=== PATIENT | male | born 1985 | race Caucasian/White ===

== ENCOUNTER 2016-06-18 13:02 | Emergency (ER) | payer BC, OTHER ==
[~2016-06-18] VITALS: Ht 177.8 cm; Wt 94.5 kg
[~2016-06-18 13:02] MED LIST: MULT-506 PO
[2016-06-18 13:05] VITALS: TEMP 36.7; Ht 177.8 cm; Wt 94.5 kg
[2016-06-18] MEDS ORDERED: CLR10 PO (13:39)
[2016-06-18] MEDS ORDERED: PSEU120T21 PO (13:39)
--- NOTE | 2016-06-18 13:44 | EMERGENCY ROOM VISIT NOTE ---
ED Visit Note First contact with patient: 13:10 CHIEF COMPLAINT / HISTORY OF PRESENT ILLNESS: The patient reports nasal congestion, throat irritation, and drainage off and on for the past several weeks. Patient states 3 weeks ago that he started coughing up yellow sputum, so he took some "left over antibiotics" which seemed to clear this up. Patient states that he has had increased sneezing, watery eyes, nasal drainage, and scratchy throat over the past week. He has not tried any medications for this. No fever or chills. No rash. Denies any posterior neck pain or stiffness. No difficulty breathing. Symptoms came on gradually. There has been no chest pain, no abdominal pain, no nausea or vomiting. REVIEW OF SYSTEMS: No headache, no rash, no cough, no neck pain, no voice changes or hoarseness. PMH: The patient is healthy; there is no significant medical or surgical history. The patient does not take any medications on a daily basis. SOCIAL HISTORY: Patient lives at home. PHYSICAL EXAM: Vital Signs: Reviewed Nurse's notes. MENTAL STATUS: Alert and oriented. EARS: Bilateral TMs normal, canals normal, no drainage or tenderness. NOSE: Bilateral naris patent, congestion and bsjq-ed-ejazlsyn injection of the turbinates noted. THROAT: The pharynx not inflamed, erythematous, or swollen. No exudates are seen on the tonsils. The oropharyngeal airway is patent. Uvula is midline and no abscess is seen. Postnasal drainage noted in the posterior pharynx. SKIN: Clear and dry, no eruptions. No cyanosis, no petechiae. NECK: The neck is supple, no pain with full range of motion, no cervical adenopathy palpated. DIFFERENTIAL DIAGNOSES: Includes, but not limited to allergic rhinitis, sinusitis, pharyngitis viral versus bacterial, viral upper respiratory infection. SUMMARY: Patient is well-appearing and in no distress. Throat is unremarkable, no erythema, swelling, exudate. Patent airway. Patient describes a lot of postnasal drainage which is most likely contributing to his other symptoms. Patient also exhibits other allergic type symptoms of sneezing and watery eyes, itchy throat. Patient was encouraged to take zjff-qjv-wylkolv Claritin, and also provided with prescription for Nasacort which was encouraged to use for his symptoms. He was encouraged to follow up with his PCP. Problem List Medical Problems: (1) Benign hypertension Status: Chronic Current/Historical Medications Scheduled Loratadine (Claritin), 10 MG PO DAILY Pseudoephedrine-Guaifenesin (Mucinex D), 1 TAB PO DAILY Triamcinolone Acetonide (Nasal (Nasacort Allergy 24Hr), 2 SPRAYS SAVANA DAILY Allergies Coded Allergies: No Known Allergies (Unverified , 02/17/14) Vital Signs Date Time Temp Pulse Resp B/P Pulse Ox O2 Delivery O2 Flow Rate FiO2 06/18/16 13:45 71 16 147/76 97 Room Air 06/18/16 13:08 96 Room Air 06/18/16 13:05 36.7 81 18 142/94 96 Room Air Departure Information Impression Primary Impression: Allergic rhinitis Dispostion Home / Self-Care Condition GOOD Prescriptions Triamcinolone Acetonide (Nasal (Nasacort Allergy 24Hr) 55 Mcg/Act Spr 2 SPRAYS SAVANA DAILY for 21 Days, #1 BTL 1 Refill Prov: Angeles Mcdaniels, TIGHTENING MACHINE OPERATOR 06/18/16 Referrals No Doctor, Assigned (PCP) Patient Instructions ED Allergy Nasal, [facility] Additional Instructions You were seen in the emergency department for your nasal drainage and sore throat. Take medications all medications as prescribed. You were prescribed Nasacort to be taken 2 sprays to each nostril once a day. This is not an antibiotic. Stop using this medication and contact a medical provider if you were to develop any significant adverse side effects including: Nosebleeds, wheezing, shortness of breath, passing out, vomiting, or a diffuse rash. Continue taking the Claritin (Tmcn-yor-qhobcwp antihistamine) one tablet daily to help manage your allergy symptoms. For pain control, you can use the following qxxb-dpw-pifkxdx medicines (if >12 yo): - Regular strength (325mg/tab) Tylenol (acetaminophen) 2 tabs every 4-6 hours as needed. Do not exceed 12 tablets in a 24 hour period. Avoid taking more than 4 grams (4000 mg) of Tylenol per day. This includes any other sources of acetaminophen you may take on a regular basis. - Regular strength (200 mg/tab) Advil (ibuprofen) 1-2 tabs every 4-6 hours as needed. Do not exceed a dose of 3200 mg per day. - For best results, alternate dosing of Tylenol and Advil. In addition to your prescribed medications, you can also use the following home remedies: - Warm salt-water gargles 3 times per day can soothe your throat and help to fight infection. - Warm tea with honey can soothe your throat. Return to the emergency department if your symptoms worsen over the next 2-3 days despite treatment course outlined above. Return to the emergency department if you develop the following symptoms of: inability to swallow solids , liquids, or drooling; muffled voice; excessive wheezing or inability to catch your breath; or intractable fever or pain. Follow up with your primary care provider in 2-3 days from today's emergency department visit. Problem Qualifiers Primary Impression: Allergic rhinitis Allergic rhinitis trigger: unspecified Allergic rhinitis seasonality: seasonal Qualified Codes: J30.2 - Other seasonal allergic rhinitis
[2016-06-18 13:45] VITALS: BP 147/76; PULSE 71; O2SAT 97
[2016-06-18] MEDS ORDERED: TRIA1SPR4 NAE (13:51)
== END 2016-06-18 14:03 | disposition home or self-care (01) ==
LOC: C.EDB 13:04 → C.EDD 14:03
DX: J30.2 Other seasonal allergic rhinitis (principal); I10 Essential (primary) hypertension; Z79.899 Other long term (current) drug therapy

== ENCOUNTER 2016-10-03 14:25 | Emergency (ER) | payer SELFPAY ==
[~2016-10-03] VITALS: Ht 177.8 cm; Wt 100.5 kg
[~2016-10-03 14:25] MED LIST changes: +CLR10 PO; -MULT-506 PO; +PSEU120T21 PO; +TRIA1SPR4 NAE
[2016-10-03 14:41] VITALS: TEMP 36.8; Ht 177.8 cm; Wt 100.5 kg
[2016-10-03] MEDS ORDERED: TRIA1SPR4 (17:05)
[2016-10-03] MEDS ORDERED: IBUP-1050 PO (17:05)
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
[2016-10-03 18:08] LABS: URINE APPEARANCE CLEAR (CLEAR); URINE BILIRUBIN NEG (NEG); URINE COLOR YELLOW; URINE NITRITE NEG (NEG); URINE PH 6.5 (4.5-7.5); URINE SPECIFIC GRAVITY 1.012 (1.000-1.030); UROBILINOGEN NEG (NEG); ZZUR CULT IF INDIC CLEAN CATCH NO
[2016-10-03 18:11] LABS: MANUAL MICROSCOPIC REQUIRED? NO; REVIEW REQ? NO
[2016-10-03 18:12] LABS: MEAN CELL VOLUME 86.1 fL (80-100); MEAN CORPUSCULAR HEMOGLOBIN 31.3 pg (25-34); MEAN CORPUSCULAR HGB CONC 36.4 g/dl (32-36); MEAN PLATELET VOLUME 10.7 fL (7.4-10.4); PLATELET COUNT 238 K/uL (130-400); RED BLOOD COUNT 5.11 M/uL (4.7-6.1); WHITE BLOOD COUNT 8.09 K/uL (4.8-10.8)
[2016-10-03 18:29] LABS: BUN/CREATININE RATIO 13.1 (10-20); CALCIUM 9.1 mg/dl (8.5-10.1); POTASSIUM 3.9 mmol/L (3.5-5.1)
--- NOTE | 2016-10-03 18:38 | DIAGNOSTIC IMAGING REPORT ---
CT SCAN OF THE ABDOMEN AND PELVIS WITHOUT IV CONTRAST CLINICAL HISTORY: Right-sided back pain. COMPARISON STUDY: Abdominal CT dated 07/18/2012. TECHNIQUE: CT scan of the abdomen and pelvis is performed from the lung bases to the proximal femora. Images are reviewed in the axial, sagittal, and coronal planes. IV contrast was not administered for this examination as per the referring clinician. Automated dose control exposure was utilized. A dose lowering technique was utilized adhering to the principles of ALARA. CT DOSE: 1102.46 mGycm FINDINGS: Lung bases: The heart is normal in size and without pericardial effusion. A punctate calcified granuloma is seen in the right lung base. The lung bases are otherwise clear noting dependent atelectasis. Liver: The unenhanced liver is normal in size, contour, and attenuation. There is no intrahepatic biliary ductal dilatation. Gallbladder: Unremarkable. Spleen: Normal in size and attenuation. Pancreas: Unremarkable. Adrenal glands: Unremarkable. Kidneys: The unenhanced kidneys are normal in size and without hydronephrosis. There are no renal calculi identified. There is no evidence of contour deforming renal mass lesion. Abdominal vasculature: The abdominal aorta is normal in course and caliber. Bowel: The small bowel and colon are normal in course and caliber. The appendix is well visualized and normal. Peritoneum: There is no intraperitoneal free air or abdominal ascites. There is a small fat containing umbilical hernia. Lymphadenopathy: None. Pelvic viscera: The bladder, prostate, and seminal vesicles are normal as visualized. Skeletal structures: No lytic or blastic lesions are seen. IMPRESSION: There are no acute infectious or inflammatory findings in the abdomen or pelvis. Electronically signed by: Paresh Mitchell M.D. 10/03/2016 6:36 PM Dictated Date/Time: 10/03/2016 6:28 PM
[2016-10-03 19:31] VITALS: BP 139/81; PULSE 90; O2SAT 97
== END 2016-10-03 19:32 | disposition home or self-care (01) ==
LOC: C.EDB 14:27
DX: R10.30 Lower abdominal pain, unspecified (principal); I10 Essential (primary) hypertension; K46.9 Unspecified abdominal hernia without obstruction or gangrene; Z80.9 Family history of malignant neoplasm, unspecified

== ENCOUNTER 2016-11-11 17:43 | Observation (INO) | payer BC ==
[~2016-11-11] VITALS: Ht 177.8 cm; Wt 93.2 kg
[~2016-11-11 17:43] MED LIST changes: +IBUP-1050 PO; -PSEU120T21 PO; +TRIA1SPR4; -TRIA1SPR4 NAE
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
[2016-11-11 19:54] LABS: BASO % 0.4 %; BASO ABS # 0.03 K/uL (0-0.2); COMPLETE YES; EOS % 1.3 %; HEMATOCRIT 45.1 % (42-52); IG% 0.3 %; LYMPH % 28.4 %; LYMPH ABS # 2.23 K/uL (1.2-3.4); MEAN CELL VOLUME 88.6 fL (80-100); MEAN CORPUSCULAR HEMOGLOBIN 30.8 pg (25-34); MEAN CORPUSCULAR HGB CONC 34.8 g/dl (32-36); MEAN PLATELET VOLUME 11.9 fL (7.4-10.4); NEUT % 61.6 %; PLATELET COUNT 114 K/uL (130-400); RED BLOOD COUNT 5.09 M/uL (4.7-6.1); WHITE BLOOD COUNT 7.86 K/uL (4.8-10.8)
[2016-11-11 20:01] LABS: POINT OF CARE TROPONIN I < 0.030 ng/ml (0-0.045)
[2016-11-11 20:04] LABS: PROTHROMBIN TIME (PATIENT) 11.2 SECONDS (9.0-12.0)
--- NOTE | 2016-11-11 20:11 | DIAGNOSTIC IMAGING REPORT ---
CHEST 2 VIEWS ROUTINE CLINICAL HISTORY: Atypical chest pain. Cough. COMPARISON STUDY: No previous studies for comparison. FINDINGS: The cardiac and mediastinal contours are normal. There is no evidence of focal pulmonary consolidation. There is no evidence of failure. No pleural effusions are visualized.[ There is a suboptimal inspiration with mild bronchovascular crowding at the lung bases. IMPRESSION: Suboptimal inspiration on the PA projection with mild bronchovascular crowding at the lung bases. No evidence of focal pulmonary consolidation Electronically signed by: Joao Coleman M.D. 11/11/2016 8:10 PM Dictated Date/Time: 11/11/2016 8:09 PM
[2016-11-11 20:18] LABS: BUN/CREATININE RATIO 9.2 (10-20); CALCIUM 9.2 mg/dl (8.5-10.1); CREATININE 1.1 mg/dl (0.60-1.40); POTASSIUM 3.9 mmol/L (3.5-5.1)
[2016-11-11] MEDS ORDERED: NITROGLYCERIN OINT 2% 1GM PACKET EXT STA (20:44)
[2016-11-11] MEDS ORDERED: NITROGLYCERIN OINT 2% 1GM PACKET ONE (20:47)
[2016-11-11] MEDS ORDERED: ACETAMINOPHEN 325 MG TAB PO PRN (21:30)
[2016-11-11] MEDS ORDERED: NITROGLYCERIN 0.4 MG SL PER TAB CHARGE SL PRN (21:30)
[2016-11-11] MEDS ORDERED: ONDANSETRON INJ 2 MG/ML 2 ML VIAL IV PRN (21:30)
[2016-11-11] MEDS ORDERED: CLONIDINE HCL 0.1 MG TAB PO PRN (21:45)
[2016-11-11] MEDS ORDERED: LORAZEPAM 0.5 MG TAB PO PRN (21:45)
--- NOTE | 2016-11-11 21:50 | History and Physical ---
History & Physical Date & Time of Service: Nov 11, 2016 ~ 21:15 Chief Complaint: Chest Pain Primary Care Physician: No Doctor, Assigned History of Present Illness 31 year old male who presents to the ED with chest pain. Patient reports his symptoms began around 0430pm today. He reports a midsternal chest pain that radiated mildly over to the right side of chest. He describes the pain as a pressure. He reports associated palpitations, nausea, lightheadedness, and shortness of breath. Symptoms lasted for around 10 minutes and started to subside. Of note, patient is currently going through a separation with his long time girlfriend. They also have a child together. Just before his episode of chest pain today, patient reports having an argument with his girlfriend. 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 He does not follow with a physician regularly. He reports having a poor appetite while going through the separation. He denies abdominal pain, nausea, vomiting, or diarrhea. No fever or chills. He denies urinary symptoms. In the ED, patient is found to have an elevated BP at 156/101. EKG shows T-wave inversions inferiorly and laterally. Initial POC troponin is negative. D. Dimer is negative. Topical nitro paste was applied. Past Medical/Surgical History Surgical Problems: (1) H/O inguinal hernia repair Status: Chronic Family History Adrenal cancer MOTHER negative for premature CAD, DM, or CVA Social History Smoking Status: Never Smoker Alcohol Use: occasionally Drug Use: none Multi-Drug Resistant Organisms History of MDRO: No Allergies Coded Allergies: No Known Allergies (Unverified , 02/17/14) Home Medications No Active Prescriptions or Reported Meds Review of Systems ROS per HPI, all other systems reviewed and negative Physical Exam Vital Signs Date Time Temp Pulse Resp B/P (MAP) Pulse Ox O2 Delivery O2 Flow Rate FiO2 11/11/16 20:53 159/110 11/11/16 20:43 91 17 97 11/11/16 20:31 147/93 11/11/16 20:13 91 22 98 11/11/16 19:43 76 22 97 11/11/16 19:31 124/109 11/11/16 19:13 79 11/11/16 19:13 85 17 99 11/11/16 19:06 158/108 11/11/16 18:02 97 Room Air 11/11/16 17:58 36.9 92 20 156/101 97 Room Air General Appearance: no apparent distress Head: normocephalic, atraumatic Eyes: normal inspection, sclerae normal ENT: hearing grossly normal Neck: supple, no JVD Respiratory/Chest: chest non-tender, lungs clear, normal breath sounds, no respiratory distress Cardiovascular: regular rate, rhythm, no edema, normal peripheral pulses Abdomen/GI: normal bowel sounds, non tender, soft Extremities/Musculoskelatal: normal inspection, no calf tenderness Neurologic/Psych: no motor/sensory deficits, alert, normal mood/affect, oriented x 3 Skin: normal color, warm/dry Diagnostics Laboratory Results Results Past 24 Hours Test 11/11/16 17:03 11/11/16 19:42 11/11/16 21:27 Range/Units White Blood Count 7.86 4.8-10.8 K/uL Red Blood Count 5.09 4.7-6.1 M/uL Hemoglobin 15.7 14.0-18.0 g/dL Hematocrit 45.1 42-52 % Mean Corpuscular Volume 88.6 80-100 fL Mean Corpuscular Hemoglobin 30.8 25-34 pg Mean Corpuscular Hemoglobin Concent 34.8 32-36 g/dl Platelet Count 114 130-400 K/uL Mean Platelet Volume 11.9 7.4-10.4 fL Neutrophils (%) (Auto) 61.6 % Lymphocytes (%) (Auto) 28.4 % Monocytes (%) (Auto) 8.0 % Eosinophils (%) (Auto) 1.3 % Basophils (%) (Auto) 0.4 % Neutrophils # (Auto) 4.85 1.4-6.5 K/uL Lymphocytes # (Auto) 2.23 1.2-3.4 K/uL Monocytes # (Auto) 0.63 0.11-0.59 K/uL Eosinophils # (Auto) 0.10 0-0.5 K/uL Basophils # (Auto) 0.03 0-0.2 K/uL RDW Standard Deviation 39.7 36.4-46.3 fL RDW Coefficient of Variation 12.4 11.5-14.5 % Immature Granulocyte % (Auto) 0.3 % Immature Granulocyte # (Auto) 0.02 0.00-0.02 K/uL Prothrombin Time 11.2 9.0-12.0 SECONDS Prothromb Time International Ratio 1.0 0.9-1.1 Activated Partial Thromboplast Time 26.5 21.0-31.0 SECONDS Partial Thromboplastin Ratio 1.0 Sodium Level 139 136-145 mmol/L Potassium Level 3.9 3.5-5.1 mmol/L Chloride Level 105 98-107 mmol/L Carbon Dioxide Level 28 21-32 mmol/L Anion Gap 6.0 3-11 mmol/L Blood Urea Nitrogen 10 7-18 mg/dl Creatinine 1.10 0.60-1.40 mg/dl Est Creatinine Clear Calc Drug Dose 111.5 ml/min Estimated GFR () 101.7 Estimated GFR (Non- 87.7 BUN/Creatinine Ratio 9.2 10-20 Random Glucose 107 70-99 mg/dl Calcium Level 9.2 8.5-10.1 mg/dl Chemistry Specimen Hemolysis Bedside D-Dimer 147 0-450 ng/mlFEU Bedside Troponin I < 0.030 0-0.045 ng/ml Creatine Kinase MB Ratio 0-3.0 Diagnostic Radiology CXR IMPRESSION: Suboptimal inspiration on the PA projection with mild bronchovascular crowding at the lung bases. No evidence of focal pulmonary consolidation Impression Assessment and Plan CHEST PAIN, EKG CHANGES - admit to tele - patient presenting with chest pain, palpitations, nausea, and shortness of breath - noted symptoms started after having an argument with his girlfriend - in the ED, EKG show T-wave inversions laterally and inferiorly; no prior EKGs available - no risk factors for CAD identified (currently with high BP but suspect anxiety is contributing); will check hgb a1c and lipids - suspect symptoms are due to anxiety / panic attack; however due to EKG changes and elevated BP will observe overnight - will give full dose ASA tonight, and then 81mng starting tomorrow - initial troponin negative, will continue to cycle - noted negative D. Dimer - resting echo; will defer stress test to cardio - cardio consult, input appreciated - mental health consult for anxiety management HYPERTENSION - suspect that anxiety is contributing so will treat anxiety first with PRN lorazepam and await mental health consult for further recs - PRN clonidine DVT PROPHYLAXIS - SCDs DISPO - The patient will be placed as observation status for now until further work up is complete. - Currently does not have PCP - is interested in getting set up at [facility] VTE Prophylaxis VTE Risk Assessment Done? Y/N: Yes Risk Level: Low Given or contraindicated: SCD's Note ATTENDING ADDENDUM Record reviewed. Patient interviewed and examined in ED. Care coordinated with KANIKA Wall. Please refer to her documentation for patient's history. Briefly, 31 YO male who presented to ED with nonexertional chest pain. Experiencing emotional stress related to family matters. EXAM: General- no distress VS- as noted HEENT- anicteric Neck- no JVD Lungs- clear Heart- RRR, no murmur or rub Abdomen- + BS, soft, nontender Extremities- no pretibial edema or calf tenderness Neuro- alert DATA: Troponin < 0.015. D-dimer normal. Other lab studies as noted. CXR- negative. EKG performed at 18:03 reviewed and demonstrated NSR at 75 / minute, 0.[address] elevation I, aVL, 0.5 - [address] elevation V2-5, biphasic T-waves II, III, aVF, V4-6. No prior tracings available for comparison. . ASSESSMENT AND PLAN: Nonexertional chest pain. Nonspecific findings on EKG. Serum troponin normal in ED. Check serial cardiac markers. Check echo. D-dimer normal, so pulmonary embolism unlikely. BP elevated, probably situational. Clonidine PRN. May need antihypertensive therapy if BP's remain elevated. Consult Psychiatry re: stress / anxiety. Please refer to ROBIN James's documentation for discussion of other issues. Dave Parham MD .
[2016-11-11] MEDS ORDERED: ASPIRIN 325 MG ECTAB PO STA (21:54)
--- NOTE | 2016-11-11 22:29 | EMERGENCY ROOM VISIT NOTE ---
History Report prepared by Cyn: Kristian Rodriguez Under the Supervision of: Dr. Jose Daniel Pham M.D. First contact with patient: 18:22 Chief Complaint: CHEST PAIN Stated Complaint: PAIN IN CHEST, SOB Nursing Triage Summary: patient is under much stress at home with break up and child involoved states he had chest pain that radiated to the neck and "butterflies" in the stomach with some shortness of breath. happened about an hour an half ago and lasted about 20 minutes. states some chest pain conitnues but it is better. History of Present Illness The patient is a 31 year old male who presents to the Emergency Room with complaints of resolved chest pain that started at 1630. He rates his symptoms as a 6/10 in severity. The patient describes his pain as a pounding sensation. He reports that the pain is in the middle of the chest and "feels as if it is going into my lungs". The patient states that the most severe chest pain lasted for 8 minutes. He states that he has been experiencing shortness of breath, dizziness, lightheadedness, and palpitations. The patient also reports that he has been experiencing nausea. He reports that he is no longer experiencing these symptoms, but admits he is still experiencing nausea. The patient admits that he has been going through a separation with his that he is stressed about. He admits that he has been monitoring his high blood pressure. The patient states that he currently does not have a PCP and is in the process of getting one. He denies a history of heart disease and hyperlipidemia. Source of History: patient Onset: 1630 Position: chest Symptom Intensity: 6/10 Quality: other (pounding) Timing: resolved Associated Symptoms: + SOB, + nausea Review of Systems See HPI for pertinent positives & negatives. A total of 10 systems reviewed and were otherwise negative. Past Medical & Surgical Surgical Problems: (1) H/O inguinal hernia repair Family History Cancer Social History Smoking Status: Never Smoker Marital Status: single Occupation Status: employed Current/Historical Medications No Active Prescriptions or Reported Meds Allergies Coded Allergies: No Known Allergies (Unverified , 02/17/14) Physical Exam Vital Signs Date Time Temp Pulse Resp B/P (MAP) Pulse Ox O2 Delivery O2 Flow Rate FiO2 11/11/16 21:58 90 21 96 11/11/16 21:51 157/120 11/11/16 21:41 172/105 11/11/16 21:31 179/107 11/11/16 21:28 84 24 95 11/11/16 21:11 153/107 11/11/16 21:01 134/109 11/11/16 20:58 86 18 163/111 96 11/11/16 20:53 159/110 11/11/16 20:43 91 17 97 11/11/16 20:31 147/93 11/11/16 20:13 91 22 98 11/11/16 19:43 76 22 97 11/11/16 19:31 124/109 11/11/16 19:13 79 11/11/16 19:13 85 17 99 11/11/16 19:06 158/108 11/11/16 18:02 97 Room Air 11/11/16 17:58 36.9 92 20 156/101 97 Room Air Physical Exam Constitutional: Vital signs reviewed. Eyes: Pupils are equal round reactive to light. Conjunctiva are noninjected. ENT: Pharynx is clear without erythema or exudate. Mucous membranes are moist. Neck supple without meningeal signs. Respiratory: Clear to auscultation bilaterally. Breath sounds are equal bilaterally. Cardiovascular: Regular rate and rhythm. No rubs or gallops. GI: Soft, nondistended and nontender. Bowel sounds are present. Musculoskeletal: No peripheral edema. No lower extremity tenderness. Integumentary: No cyanosis. Neurological: The patient is awake and alert. No focal deficits. Psychiatric: Normal affect. Medical Decision & Procedures ER Provider Diagnostic Interpretation: X-ray results as stated below per interpretation by me and the radiologist: CHEST 2 VIEWS ROUTINE CLINICAL HISTORY: Atypical chest pain. Cough. COMPARISON STUDY: No previous studies for comparison. FINDINGS: The cardiac and mediastinal contours are normal. There is no evidence of focal pulmonary consolidation. There is no evidence of failure. No pleural effusions are visualized.[ There is a suboptimal inspiration with mild bronchovascular crowding at the lung bases. IMPRESSION: Suboptimal inspiration on the PA projection with mild bronchovascular crowding at the lung bases. No evidence of focal pulmonary consolidation Electronically signed by: Joao Coleman M.D. 11/11/2016 8:10 PM Dictated Date/Time: 11/11/2016 8:09 PM Laboratory Results 11/11/16 17:03 Red Blood Count 5.09, Mean Corpuscular Volume 88.6, Mean Corpuscular Hemoglobin 30.8, Mean Corpuscular Hemoglobin Concent 34.8, Mean Platelet Volume 11.9, Neutrophils (%) (Auto) 61.6, Lymphocytes (%) (Auto) 28.4, Monocytes (%) (Auto) 8.0, Eosinophils (%) (Auto) 1.3, Basophils (%) (Auto) 0.4, Neutrophils # (Auto) 4.85, Lymphocytes # (Auto) 2.23, Monocytes # (Auto) 0.63, Eosinophils # (Auto) 0.10, Basophils # (Auto) 0.03 11/11/16 17:03 Test 11/11/16 17:03 11/11/16 19:42 11/11/16 21:27 White Blood Count 7.86 K/uL (4.8-10.8) Red Blood Count 5.09 M/uL (4.7-6.1) Hemoglobin 15.7 g/dL (14.0-18.0) Hematocrit 45.1 % (42-52) Mean Corpuscular Volume 88.6 fL (80-100) Mean Corpuscular Hemoglobin 30.8 pg (25-34) Mean Corpuscular Hemoglobin Concent 34.8 g/dl (32-36) Platelet Count 114 K/uL (130-400) Mean Platelet Volume 11.9 fL (7.4-10.4) Neutrophils (%) (Auto) 61.6 % Lymphocytes (%) (Auto) 28.4 % Monocytes (%) (Auto) 8.0 % Eosinophils (%) (Auto) 1.3 % Basophils (%) (Auto) 0.4 % Neutrophils # (Auto) 4.85 K/uL (1.4-6.5) Lymphocytes # (Auto) 2.23 K/uL (1.2-3.4) Monocytes # (Auto) 0.63 K/uL (0.11-0.59) Eosinophils # (Auto) 0.10 K/uL (0-0.5) Basophils # (Auto) 0.03 K/uL (0-0.2) RDW Standard Deviation 39.7 fL (36.4-46.3) RDW Coefficient of Variation 12.4 % (11.5-14.5) Immature Granulocyte % (Auto) 0.3 % Immature Granulocyte # (Auto) 0.02 K/uL (0.00-0.02) Prothrombin Time 11.2 SECONDS (9.0-12.0) Prothromb Time International Ratio 1.0 (0.9-1.1) Activated Partial Thromboplast Time 26.5 SECONDS (21.0-31.0) Partial Thromboplastin Ratio 1.0 Anion Gap 6.0 mmol/L (3-11) Est Creatinine Clear Calc Drug Dose 111.5 ml/min Estimated GFR () 101.7 Estimated GFR (Non- 87.7 BUN/Creatinine Ratio 9.2 (10-20) Calcium Level 9.2 mg/dl (8.5-10.1) Creatine Kinase MB 3.2 ng/ml (0.5-3.6) Troponin I < 0.015 ng/ml (0-0.045) Chemistry Specimen Hemolysis Bedside D-Dimer 147 ng/mlFEU (0-450) Bedside Troponin I < 0.030 ng/ml (0-0.045) Creatine Kinase MB Ratio (0-3.0) Laboratory results as reviewed by me. Medications Administered Medications (Trade) Dose Ordered Sig/Kassy Route Start Time Stop Time Status Last Admin Dose Admin Nitroglycerin (Nitroglycerin 2% Oint) 1 inch STK-MED ONCE .ROUTE 11/11/16 20:47 11/11/16 20:48 DC 11/11/16 20:47 1 INCH ECG Indication: chest pain Rate (beats per minute): 75 Rhythm: normal sinus Findings: T-wave inversion (Inferior, V4-V6), no ectopy Comparison ECG Date: no prior available Change: REPEAT EKG: Normal sinus rhythm rate of 86. Inferior and lateral T wave inversion. No ST elevation. ED Course 1903: The patient was evaluated in room B02. A complete history and physical exam was performed. 2029: I reevaluated the patient and he reports that he developed chest pain on the right side, which he describes as muscular pain. 2046: Ordered Nitroglycerin 1 inch EXT. 2100: I discussed the patient's case with Araseli Wall. She understands the patient's condition and agrees to accept the patient. The patient will be further evaluated. Medical Decision This is a 31-year-old male who presents with chest pain. Differential diagnosis includes unstable angina, [place], anxiety, panic attack, pleurisy. I did perform a limited focused review of portions of the patient's old chart on the electronic medical record. The patient has had no recent pertinent visits to this hospital. I did evaluate the patient as noted above. IV access was established. The patient was placed on a continuous vehicle monitor technician. I did order and personally review the patient's 12-lead EKG and chest x-ray as described above. His 12- lead EKG is concerning. He does have T-wave inversions in the inferior leads as well as the precordial leads. He has no prior EKG for comparison. He is not currently having any chest pain. I did order and review the patient's blood work as noted in the electronic medical record. Troponin is negative. D- dimer is negative. I did reassess the patient. He is now having recurrent chest pain. He describes it as a right-sided pain behind the muscle. I did repeat a twelve-lead EKG which showed persistent T-wave changes. He was given nitroglycerin paste for his pain. Given his abnormal EKG he will be hospitalized for repeat cardiac enzymes. The case was discussed with the hospitalist. Resident Physician Supervision Note: I did evaluate and examine this patient myself. I did guide management for the patient. I agree with the resident's (Dr. Light) assessment as discussed. Please see the resident's dictation for further details. Medication Reconcilliation Current Medication List: was personally reviewed by me Blood Pressure Screening Patient's blood pressure: Elevated blood pressure Consults Time Called: 2100 Consulting Physician: Araseli Wall Returned Call: 2100 I discussed the patient's case with Araseli Wall. She understands the patient's condition and agrees to accept the patient. The patient will be further evaluated. Impression Primary Impression: Acute chest pain Additional Impression: Abnormal EKG Scribe Attestation The scribe's documentation has been prepared under my direct and personally reviewed by me in its entirety. I confirm that the note above accurately reflects all work, treatment, procedures, and medical decision making performed by me. Departure Information Dispostion Being Evaluated By Hospitalist Prescriptions No Active Prescriptions or Reported Meds Referrals No Doctor, Assigned (PCP) Patient Instructions My [facility] Problem Qualifiers
[2016-11-11] MEDS ORDERED: ASPIRIN 324 MG CHEW ONE (22:30)
[2016-11-11 22:35] VITALS: O2SAT 95
[2016-11-11 22:45] VITALS: BP 124/78; PULSE 65; TEMP 37; Ht 177.8 cm; Wt 93.2 kg
[2016-11-11] MEDS ORDERED: IV FLUIDS COMPLETED PRN (22:45)
[2016-11-11 23:13] VITALS: BP 124/78; PULSE 67; TEMP 37; O2SAT 97
[2016-11-12 02:14] LABS: BLOOD UREA NITROGEN 10 mg/dl (7-18); BUN/CREATININE RATIO 8.9 (10-20); CALCIUM 8.6 mg/dl (8.5-10.1); CARBON DIOXIDE 29 mmol/L (21-32); CHLORIDE 106 mmol/L (98-107); GLUCOSE 120 mg/dl (70-99); POTASSIUM 3.7 mmol/L (3.5-5.1); SODIUM 142 mmol/L (136-145)
[2016-11-12 02:25] LABS: CHOLESTEROL 146 mg/dl (0-200); CHOLESTEROL/HDL RATIO 3.7; HDL CHOLESTEROL 40 mg/dl; LDL CHOLESTEROL CALCULATED 87 mg/dl; TRIGLYCERIDES 97 mg/dl (0-150); VERY LOW DENSITY LIPOPROT CALC 19 mg/dl
[2016-11-12 04:35] VITALS: BP 115/79; PULSE 61; TEMP 36.6; O2SAT 98
[2016-11-12 06:30] LABS: HEMATOCRIT 46.6 % (42-52); MEAN CELL VOLUME 89.8 fL (80-100); MEAN CORPUSCULAR HEMOGLOBIN 29.5 pg (25-34); MEAN CORPUSCULAR HGB CONC 32.8 g/dl (32-36); MEAN PLATELET VOLUME 10.7 fL (7.4-10.4); PLATELET COUNT 223 K/uL (130-400); RED BLOOD COUNT 5.19 M/uL (4.7-6.1); WHITE BLOOD COUNT 7.83 K/uL (4.8-10.8)
[2016-11-12 07:01] LABS: ESTIMATED AVERAGE GLUCOSE 100 mg/dl; HA1C FLAG Normal (Normal)
[2016-11-12 07:04] LABS: CKMB/CK RATIO 0.8 (0-3.0)
[2016-11-12 08:06] VITALS: BP 108/71; PULSE 62; TEMP 36.6; O2SAT 97
[2016-11-12] MEDS ORDERED: PERFLUTREN LIPID MICROSPHERE (DEFINITY) IV ONE ×2 (08:36→12:35)
[2016-11-12] MEDS ORDERED: ASPIRIN 81 MG ECTAB PO SCH (09:00)
--- NOTE | 2016-11-12 09:01 | ECHOCARDIOGRAM REPORT ---
*NOTICE TO RECEIVING [employer] This information is strictly Confidential and protected under [place] law. [place] law prohibits you from making any further disclosure of this information unless further disclosure is expressly permitted by the written consent of the person to whom it pertains or is authorized by law. A general authorization for the release of medical or other information is not sufficient for this purpose. Hospital accepts no responsibility if the information is made available to any other person, INCLUDING THE PATIENT. Interpretation Summary * Name: CORAL BLEVINS Study Date: 11/12/2016 07:42 AM BP: 108/71 mmHg * Patient Location: [facility]\S\N289\S\2 HR: 62 * : 1985 (M/d/yyyy) Gender: Male Height: 70 in * Age: 31 yrs Ethnicity: [place] Weight: 213 lb * Ordering Physician: Kiara James * Referring Physician: Self, Referred * Performed By: Gayla Barnard RDCS * * Reason For Study: CHEST PAIN, EKG CHANGES * BSA: 2.1 m2 * The study was technically adequate. * There is no comparison study available. * -- Conclusions -- * Ejection Fraction = 60-65%. * There is mild concentric left ventricular hypertrophy. * The left ventricular wall motion is normal. * Pulse wave TDI of the anterior and posterior mitral annulas demonstrates normal LV relaxation. * No significant valvular disease. Procedure Details * A contrast injection of Definity was performed to improve assessment of LV function. * Contrast was injected into an intravenous site in the left arm. * One vial of Definity ultrasound contrast was diluted in normal saline to a total volume of 10 ml. A total of '2' ml of solution was administered during imaging. * Lot # [id number] of Definity utilized for procedure. * Expiration date DEC 04. * The attending nurse who injected the contrast agent was CORBIN OROZCO RN. * A complete two-dimensional transthoracic echocardiogram was performed (2D, M-mode, Doppler and color flow Doppler). Left Ventricle * The left ventricle is normal in size. * There is mild concentric left ventricular hypertrophy. * Ejection Fraction = 60-65%. * Left ventricular systolic function is normal. * The left ventricular wall motion is normal. Right Ventricle * The right ventricle is normal size. * The right ventricular systolic function is normal as assessed by tricuspid annular plane systolic excursion (TAPSE) (normal >1.5 cm). Atria * The left atrial size is normal. * Right atrial size is normal. * There is no evidence of atrial septal defect, but resolution does not allow assessment for a patent foramen ovale. Mitral Valve * The mitral valve is normal. * There is no mitral valve stenosis. * Significant mitral regurgitation is absent. Tricuspid Valve * The tricuspid valve is normal. * There is no tricuspid stenosis. * Significant tricuspid regurgitation is absent. Aortic Valve * The aortic valve is trileaflet. * Aortic stenosis is absent. * There is no significant aortic regurgitation. Pulmonic Valve * The pulmonary valve is not well seen, but the Doppler examination is normal without significant regurgitation or stenosis. Great Vessels * The aortic root and proximal ascending aorta are normal sized. Pericardium/Pleural * There is no pericardial effusion. Great Vessels * Normal inferior vena cava diameter and respiratory variation suggests normal central venous pressure. Left Ventricular Diastolic Function * Pulse wave TDI of the anterior and posterior mitral annulas demonstrates normal LV relaxation MMode 2D Measurements and Calculations IVSd 1.2 cm IVSs 1.5 cm LVIDd 4.0 cm LVIDs 2.8 cm LVPWd 1.3 cm LVPWs 1.8 cm IVS/LVPW 0.93 FS 31.2 % EDV(Teich) 70.8 ml ESV(Teich) 28.6 ml EF(Teich) 59.6 % EDV(cubed) 64.9 ml ESV(cubed) 21.1 ml EF(cubed) 67.5 % % IVS thick 29.1 % % LVPW thick 43.0 % LV mass(C)d 175.4 grams LV mass(C)dI 81.8 grams/m\S\2 LV mass(C)s 176.6 grams LV mass(C)sI 82.4 grams/m\S\2 SV(Teich) 42.2 ml SI(Teich) 19.7 ml/m\S\2 SV(cubed) 43.8 ml SI(cubed) 20.4 ml/m\S\2 Ao root diam 2.9 cm Ao root area 6.6 cm\S\2 LA dimension 3.6 cm LA/Ao 1.2 LVAd ap4 30.7 cm\S\2 LVLd ap4 8.2 cm EDV(MOD-sp4) 93.3 ml EDV(sp4-el) 97.7 ml LVAs ap4 18.1 cm\S\2 LVLs ap4 6.4 cm ESV(MOD-sp4) 40.8 ml ESV(sp4-el) 43.2 ml EF(MOD-sp4) 56.3 % EF(sp4-el) 55.8 % LVAd ap2 33.0 cm\S\2 LVLd ap2 8.1 cm EDV(MOD-sp2) 108.1 ml EDV(sp2-el) 113.7 ml LVAs ap2 20.6 cm\S\2 LVLs ap2 7.4 cm ESV(MOD-sp2) 47.1 ml ESV(sp2-el) 48.9 ml EF(MOD-sp2) 56.4 % EF(sp2-el) 57.0 % LVLd %diff -1.04 % EDV(MOD-bp) 101.8 ml LVLs %diff 12.3 % ESV(MOD-bp) 46.9 ml EF(MOD-bp) 54.0 % SV(MOD-sp4) 52.6 ml SI(MOD-sp4) 24.5 ml/m\S\2 SV(MOD-sp2) 61.0 ml SI(MOD-sp2) 28.5 ml/m\S\2 SV(MOD-bp) 54.9 ml SI(MOD-bp) 25.6 ml/m\S\2 SV(sp4-el) 54.5 ml SI(sp4-el) 25.4 ml/m\S\2 SV(sp2-el) 64.8 ml SI(sp2-el) 30.2 ml/m\S\2 Doppler Measurements and Calculations MV E max cat 61.5 cm/sec MV A max cat 41.1 cm/sec MV E/A 1.5 MV dec time 0.29 sec Ao V2 max 115.6 cm/sec Ao max PG 5.3 mmHg Ao max PG (full) 0.39 mmHg LV V1 max PG 5.0 mmHg LV V1 max 111.3 cm/sec
--- NOTE | 2016-11-12 09:42 | CARDIOLOGY CONSULTATION ---
DATE OF CONSULTATION: 11/12/2016 REFERRING PHYSICIAN: Dr. Dave Parham. REASON FOR CONSULTATION: Chest pain. HISTORY OF PRESENT ILLNESS: Mr. Chaudhry is a 31-year-old gentleman who presented to the Emergency Department with chest discomfort. Symptoms are participated by an argument with his seemed to be ex-. The patient is currently in going through a divorce and there is some child custody issues. The patient states this is the first argument he has had over this issue. He was somewhat upset. Chest pain began approximately 30 minutes later, described as a muscle tightening. The discomfort became somewhat more severe and lasted for approximately 20 minutes. He came to the Emergency Department for further evaluation. He reported some associated palpitations, nausea, lightheadedness and shortness of breath. Discomfort improved with treatment with lorazepam. His blood pressure was also found to be markedly elevated initially which also improved overnight. Initial ECG abnormal with T-wave inversions inferolaterally. His repeat ECG this morning demonstrates J-point elevation. The patient is currently chest pain free. He slept well last night. Denies any chest pain, abdominal discomfort, nausea, palpitations today. His telemetry, history of arrhythmias. Resting 2D echocardiogram demonstrates normal wall motion with mild concentric left ventricular hypertrophy, no significant valvular disease. REVIEW OF SYSTEMS: The pertinent positives are noted above, a comprehensive 10-system review is otherwise negative. PAST MEDICAL HISTORY: 1. Recently noted elevated blood pressure. 2. Inguinal hernia. PAST SURGICAL HISTORY: Inguinal hernia repair. FAMILY HISTORY: Negative for premature coronary artery disease, sudden cardiac , cerebrovascular accident, diabetes, or dysrhythmia. SOCIAL HISTORY: Lifelong nonsmoker. Denies any alcohol or illicit drug use. Denies any use of anabolic steroids. ALLERGIES: No known drug allergies. HOME MEDICATIONS: Denied. LABORATORY DATA: Troponins negative x3 sets. Sodium 142, potassium 3.7, chloride 106, CO2 is 29, BUN is 10, creatinine is 1.10. LDL is 87, HDL is 40. TSH is 1.340. White cell count is 7.83, hemoglobin is 15.3, platelet count is 223. Chest x-ray demonstrates no consolidation. Telemetry demonstrates sinus rhythm. PHYSICAL EXAMINATION: VITAL SIGNS: Temperature is 36.6 degrees centigrade, pulse 62 beats per minute and regular, respiratory rate 16 breaths per minute, blood pressure 108/71, SaO2 is 97% on room air. GENERAL: NAD, healthy appearing, awake, alert and oriented x3. HEENT: Mucous membranes are moist. No scleral icterus. Conjunctivae are pink. NECK: Supple without JVD or HJR. No carotid bruit. HEART: Regular with a normal S1 and S2. There is no murmur, rub, or gallop. LUNGS: Clear without rales, rhonchi or wheeze. ABDOMEN: Soft, nontender. No rebound or guarding. Normal bowel sounds. EXTREMITIES: Warm and dry. There is no clubbing, cyanosis, or edema. NEUROLOGIC: Demonstrates no focal motor deficit. FINAL IMPRESSION: 1. A 31-year-old male presented to the hospital with chest discomfort, possibly related to anxiety/panic attack. 2. Accelerated hypertension in the setting of anxiety/panic. 3. Mild concentric left ventricular hypertrophy noted on resting 2D transthoracic echo with mildly elevated body mass index. 4. Accelerated hypertension on admission - blood pressure improved overnight, currently within acceptable range. PLAN AND RECOMMENDATIONS: An exercise stress echocardiogram will be reperformed for further evaluation of chest discomfort and abnormal 12-lead ECG. The patient's cardiac enzymes are negative without regional wall motion abnormality on echocardiogram. Conservative treatment measures of elevated blood pressure discussed including sodium restriction and regular aerobic exercise. Further recommendations regarding exercise prescription will be made pending review of stress testing. The patient will require outpatient monitoring of his blood pressure over the next 6-12 weeks. Pending that assessment would consider medical therapy. Further recommendations pending review of stress testing. Thank you for allowing me to take part in the care of your patient. OLIVA
[2016-11-12 11:56] VITALS: BP 119/78; PULSE 80; TEMP 37.1; O2SAT 95
--- NOTE | 2016-11-12 12:02 | EXERCISE STRESS ECHO ---
*NOTICE TO RECEIVING DEMOCRAT AGENCY This information is strictly Confidential and protected under [place] law. [place] law prohibits you from making any further disclosure of this information unless further disclosure is expressly permitted by the written consent of the person to whom it pertains or is authorized by law. A general authorization for the release of medical or other information is not sufficient for this purpose. Hospital accepts no responsibility if the information is made available to any other person, INCLUDING THE PATIENT. Interpretation Summary * Name: CORAL BLEVINS Study Date: 11/12/2016 09:46 AM BP: 127/80 mmHg * Patient Location: [facility]\S\N289\S\2 HR: 53 * : 1985 (M/d/yyyy) Gender: Male Height: 70 in * Age: 31 yrs Ethnicity: [place] Weight: 205 lb * Ordering Physician: Jose Daniel Pedroza * Referring Physician: FRANCESCA * Performed By: Gayla Barnard RDCS * * Reason For Study: CHEST PAIN * BSA: 2.1 m2 * The study was technically adequate. * STRESS STUDY: Normal exercise stress echocardiogram. No echocardiographic or ECG evidence of myocardial ischemia having achieved heart rate adequate for diagnostic purposes. Procedure Details * A contrast injection of Definity was performed to improve assessment of LV function. * Contrast was injected into an intravenous site in the left arm. * One vial of Definity ultrasound contrast was diluted in normal saline to a total volume of 10 ml. A total of '4' ml of solution was administered during imaging. * Lot # [id number] of Definity utilized for procedure. * Expiration date DEC 04. * The attending nurse who injected the contrast agent was CORBIN OROZCO RN. Left Ventricle * The left ventricular ejection fraction increases normally with stress. The left ventricular end-systolic cavity size reduces post-stress (normal response). The left ventricular wall motion with stress is normal. * Ejection Fraction = 60-65%. * Resting wall motion: Normal. Stress wall motion: Appropriate increase in Left ventricular systolic function and decrease in cavity size. No stress induced segmental wall motion abnormalities. Stress Parameters * The baseline ECG displays normal sinus rhythm. * Baseline ECG: abnormal T waves in the inferior and lateral leads. * Stress ECG: No ST changes. No arrhythmias. * The stress portion of this study was personally supervised by the undersigned interpreting physician. * Rest heart rate was '53' BPM. * Rest blood pressure was '127/80' * Maximum heart rate achieved was 169 bpm. * Maximum heart rate was 90 % of maximum age-predicted heart rate. * Maximum blood pressure was '197/58' * Total exercise time was '11:07' * Maximum exercise MET level achieved was '13.40' METS * Maximum treadmill speed was '4.20' miles per hour. * Maximum treadmill elevation was '16.00'% grade. * Exercise was terminated due to 'ACHIEVING TARGET HR' * Exercise was stopped due to leg pain. * Normal blood pressure response to exercise. * Above average exercise tolerance.
--- NOTE | 2016-11-12 12:44 | Progress Note ---
Internal Med Progress Note Date of Service: Nov 12, 2016. Provider Documentation: SUBJECTIVE: Seen and examined at bedside Had stress test today Denies chest pain, SOB Denies suicidal thoughts admits to having anxiety issues secondary to separation with girlfriend OBJECTIVE: Vital Signs-as noted below Physical Exam: Vitals signs as noted above General Appearance:Moderately built and nourished, no apparent distress Head: normocephalic, Atraumatic Eyes: normal inspection, EOMI, PERRLA Neck: supple, Trachea midline Respiratory/Chest: Normal breath sounds, CTA Cardiovascular: S1, S2, No murmur Abdomen/GI:Soft, Non tender, Bowel sounds present Extremities/Musculoskelatal:normal inspection, no edema Neurologic/Psych:grossly no focal neurological deficits Skin: normal color, warm Lab data as noted below. ASSESSMENT & PLAN: Atypical Chest Pain: patient presented with chest pain, palpitations, nausea, and shortness of breath - noted symptoms started after having an argument with his girlfriend Likely secondary to anxiety issues EKG: ST changes Cardiac enzymes negative D. Dimer ECHO: no wall motion abnormality Stress test: negative HYPERTENSION Likely situational Encourage low salt diet, regular exercise monitor Adjustment disorder with anxious mood: received Ativan PRN Appreciate Psychiatry Input No indication for meds for now Planned for outpatient Psychotherapy DVT Px SCDs Disposition: Plan to discharge home today Follow up with on 11/18/16 at 11:00am at [facility] office Follow up with your psychiatrist for outpatient psychotherapy as advised Seek immediate medical attention if your symptoms reoccur or worsen PROCEDURES: Stress ECHO: * The study was technically adequate. * STRESS STUDY: Normal exercise stress echocardiogram. No echocardiographic or ECG evidence of myocardial ischemia having achieved heart rate adequate for diagnostic purposes. Resting ECHO: Ejection Fraction = 60-65%. * There is mild concentric left ventricular hypertrophy. * The left ventricular wall motion is normal. * Pulse wave TDI of the anterior and posterior mitral annulas demonstrates normal LV relaxation. * No significant valvular disease. Vital Signs: Date Time Temp Pulse Resp B/P (MAP) Pulse Ox O2 Delivery O2 Flow Rate FiO2 11/12/16 12:00 Room Air 11/12/16 11:56 37.1 80 18 119/78 (92) 95 Room Air 11/12/16 08:06 36.6 62 16 108/71 (83) 97 Room Air 11/12/16 08:00 Room Air 11/12/16 04:35 36.6 61 18 115/79 (91) 98 Room Air 11/12/16 04:00 Room Air 11/11/16 23:13 37.0 67 18 124/78 (93) 97 Room Air 11/11/16 22:45 37.0 65 18 124/78 Room Air 11/11/16 22:35 36.9 74 18 151/117 95 11/11/16 22:33 74 18 151/117 95 11/11/16 21:58 90 21 96 11/11/16 21:51 157/120 11/11/16 21:41 172/105 11/11/16 21:31 179/107 11/11/16 21:28 84 24 95 11/11/16 21:11 153/107 11/11/16 21:01 134/109 11/11/16 20:58 86 18 163/111 96 11/11/16 20:53 159/110 11/11/16 20:43 91 17 97 11/11/16 20:31 147/93 11/11/16 20:13 91 22 98 11/11/16 19:43 76 22 97 11/11/16 19:31 124/109 11/11/16 19:13 79 11/11/16 19:13 85 17 99 11/11/16 19:06 158/108 11/11/16 18:02 97 Room Air 11/11/16 17:58 36.9 92 20 156/101 97 Room Air Lab Results: Results Past 24 Hours Test 11/11/16 17:03 11/11/16 19:42 11/11/16 21:27 11/12/16 01:48 Range/Units White Blood Count 7.86 4.8-10.8 K/uL Red Blood Count 5.09 4.7-6.1 M/uL Hemoglobin 15.7 14.0-18.0 g/dL Hematocrit 45.1 42-52 % Mean Corpuscular Volume 88.6 80-100 fL Mean Corpuscular Hemoglobin 30.8 25-34 pg Mean Corpuscular Hemoglobin Concent 34.8 32-36 g/dl Platelet Count 114 130-400 K/uL Mean Platelet Volume 11.9 7.4-10.4 fL Neutrophils (%) (Auto) 61.6 % Lymphocytes (%) (Auto) 28.4 % Monocytes (%) (Auto) 8.0 % Eosinophils (%) (Auto) 1.3 % Basophils (%) (Auto) 0.4 % Neutrophils # (Auto) 4.85 1.4-6.5 K/uL Lymphocytes # (Auto) 2.23 1.2-3.4 K/uL Monocytes # (Auto) 0.63 0.11-0.59 K/uL Eosinophils # (Auto) 0.10 0-0.5 K/uL Basophils # (Auto) 0.03 0-0.2 K/uL RDW Standard Deviation 39.7 36.4-46.3 fL RDW Coefficient of Variation 12.4 11.5-14.5 % Immature Granulocyte % (Auto) 0.3 % Immature Granulocyte # (Auto) 0.02 0.00-0.02 K/uL Prothrombin Time 11.2 9.0-12.0 SECONDS Prothromb Time International Ratio 1.0 0.9-1.1 Activated Partial Thromboplast Time 26.5 21.0-31.0 SECONDS Partial Thromboplastin Ratio 1.0 Sodium Level 139 142 136-145 mmol/L Potassium Level 3.9 3.7 3.5-5.1 mmol/L Chloride Level 105 106 98-107 mmol/L Carbon Dioxide Level 28 29 21-32 mmol/L Anion Gap 6.0 7.0 3-11 mmol/L Blood Urea Nitrogen 10 10 7-18 mg/dl Creatinine 1.10 1.10 0.60-1.40 mg/dl Est Creatinine Clear Calc Drug Dose 111.5 109.5 ml/min Estimated GFR () 101.7 101.7 Estimated GFR (Non- 87.7 87.7 BUN/Creatinine Ratio 9.2 8.9 10-20 Random Glucose 107 120 70-99 mg/dl Calcium Level 9.2 8.6 8.5-10.1 mg/dl Creatine Kinase MB 3.2 2.8 0.5-3.6 ng/ml Troponin I < 0.015 < 0.015 0-0.045 ng/ml Chemistry Specimen Hemolysis Bedside D-Dimer 147 0-450 ng/mlFEU Bedside Troponin I < 0.030 0-0.045 ng/ml Creatine Kinase MB Ratio 1.0 0-3.0 Total Creatine Kinase 279 39-308 U/L Triglycerides Level 97 0-150 mg/dl Cholesterol Level 146 0-200 mg/dl HDL Cholesterol 40 mg/dl LDL Cholesterol, Calculated 87 mg/dl VLDL Cholesterol, Calculated 19 mg/dl Cholesterol/HDL Ratio 3.7 Thyroid Stimulating Hormone (TSH) 1.340 0.300-4.500 uIu/ml Test 11/12/16 06:07 Range/Units White Blood Count 7.83 4.8-10.8 K/uL Red Blood Count 5.19 4.7-6.1 M/uL Hemoglobin 15.3 14.0-18.0 g/dL Hematocrit 46.6 42-52 % Mean Corpuscular Volume 89.8 80-100 fL Mean Corpuscular Hemoglobin 29.5 25-34 pg Mean Corpuscular Hemoglobin Concent 32.8 32-36 g/dl RDW Standard Deviation 40.8 36.4-46.3 fL RDW Coefficient of Variation 12.5 11.5-14.5 % Platelet Count 223 130-400 K/uL Mean Platelet Volume 10.7 7.4-10.4 fL Estimated Average Glucose 100 mg/dl Hemoglobin A1c 5.1 4.5-5.6 % Total Creatine Kinase 250 39-308 U/L Creatine Kinase MB 2.1 0.5-3.6 ng/ml Creatine Kinase MB Ratio 0.8 0-3.0 Troponin I < 0.015 0-0.045 ng/ml
--- NOTE | 2016-11-12 13:20 | Psychiatric Consultation ---
Consultation Date of Consultation Nov 12, 2016. Identifying Data 31-year-old single white male with no psychiatric history who is admitted medically with chest pain and an abnormal EKG. Psychiatry was consulted for anxiety. Chief Complaint "I'm not sure, I guess all the stress". History of Present Illness Patient states that he has no psychiatric history, has never seen a mental health provider before or been on psychotropic medications. He reports increased stress over the past few months due to relationship strain with his girlfriend, with whom he lives and has a 2-year-old daughter. He states that he thought things were going well in their relationship, and was even talking to her about proposing, but then she became more distant and secretive, hiding her phone from him, and would not tell him what was wrong. He is trying to confront her multiple times, and she has become more withdrawn. She is told him that she "doesn't know what she is doing," and at one point became tearful when he confronted her, then began sleeping on the couch. She then left the home that they share, and has been staying with her parents for the last couple of weeks. She took the 2-year-old daughter with her, so he rarely gets to see his daughter. She has not yet told him what is going on or the status of the relationship, and he feels very distressed by this. Since she left, his mood has been lower, sleep decreased, he is worried and anxious, and has difficulty focusing. He denies ever having a panic attack, but questions if the symptoms he experienced yesterday were related to panic. He describes acute onset of chest pain and nausea after an argument with his girlfriend. Appetite is decreased, and he has lost 12 pounds in the past month. He denies suicidal thoughts and homicidal thoughts, hallucinations, paranoia, and manic symptoms. He is functioning fully, going to work and performing his ADLs. He has limited supports, and says he really has no one to talk to about this. He had been talking to his girlfriend's parents and sister, and says they are also perplexed by her behavior. Past Psychiatric History Current OP Treatment: no current treatment Prior OP Treatment: no prior treatment Prior Psych Hospitalizations: none Suicide Attempts: No Past Medication Trials None. Past Medical/Surgical History (1) Abnormal EKG (2) Acute chest pain (3) H/O inguinal hernia repair Allergies Allergies: Coded Allergies: No Known Allergies (Unverified , 02/17/14) Home Medications No Active Prescriptions or Reported Meds Family History Adrenal cancer MOTHER History of Suicide: No History of Substance Abuse: No Psychiatric History: Yes (thinks his father may have struggled with depression and anxiety when his parents , but is not sure if he was diagnosed or treated.) Alcohol Use Alcohol Use In Past 12 Months: Yes (drinks only rarely, 1-2 drinks in a sitting , denies any problems with alcohol.) Smoking Use Smoking Status: Never Smoker Substance History Denies recreational drug use. Personal History Lives in: [place] Childhood: Grew up locally. 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 Examination Vital Signs Vital Signs Past 12 Hours Date Time Temp Pulse Resp B/P (MAP) Pulse Ox O2 Delivery O2 Flow Rate FiO2 11/12/16 12:00 Room Air 11/12/16 11:56 37.1 80 18 119/78 (92) 95 Room Air 11/12/16 08:06 36.6 62 16 108/71 (83) 97 Room Air 11/12/16 08:00 Room Air 11/12/16 04:35 36.6 61 18 115/79 (91) 98 Room Air 11/12/16 04:00 Room Air Laboratory Results Last 24 Hours Test 11/11/16 17:03 11/11/16 19:42 11/11/16 21:27 11/12/16 01:48 White Blood Count 7.86 K/uL Red Blood Count 5.09 M/uL Hemoglobin 15.7 g/dL Hematocrit 45.1 % Mean Corpuscular Volume 88.6 fL Mean Corpuscular Hemoglobin 30.8 pg Mean Corpuscular Hemoglobin Concent 34.8 g/dl Platelet Count 114 K/uL Mean Platelet Volume 11.9 fL Neutrophils (%) (Auto) 61.6 % Lymphocytes (%) (Auto) 28.4 % Monocytes (%) (Auto) 8.0 % Eosinophils (%) (Auto) 1.3 % Basophils (%) (Auto) 0.4 % Neutrophils # (Auto) 4.85 K/uL Lymphocytes # (Auto) 2.23 K/uL Monocytes # (Auto) 0.63 K/uL Eosinophils # (Auto) 0.10 K/uL Basophils # (Auto) 0.03 K/uL RDW Standard Deviation 39.7 fL RDW Coefficient of Variation 12.4 % Immature Granulocyte % (Auto) 0.3 % Immature Granulocyte # (Auto) 0.02 K/uL Prothrombin Time 11.2 SECONDS Prothromb Time International Ratio 1.0 Activated Partial Thromboplast Time 26.5 SECONDS Partial Thromboplastin Ratio 1.0 Sodium Level 139 mmol/L 142 mmol/L Potassium Level 3.9 mmol/L 3.7 mmol/L Chloride Level 105 mmol/L 106 mmol/L Carbon Dioxide Level 28 mmol/L 29 mmol/L Anion Gap 6.0 mmol/L 7.0 mmol/L Blood Urea Nitrogen 10 mg/dl 10 mg/dl Creatinine 1.10 mg/dl 1.10 mg/dl Est Creatinine Clear Calc Drug Dose 111.5 ml/min 109.5 ml/min Estimated GFR () 101.7 101.7 Estimated GFR (Non- 87.7 87.7 BUN/Creatinine Ratio 9.2 8.9 Random Glucose 107 mg/dl 120 mg/dl Calcium Level 9.2 mg/dl 8.6 mg/dl Creatine Kinase MB 3.2 ng/ml 2.8 ng/ml Troponin I < 0.015 ng/ml < 0.015 ng/ml Chemistry Specimen Hemolysis Bedside D-Dimer 147 ng/mlFEU Bedside Troponin I < 0.030 ng/ml Creatine Kinase MB Ratio 1.0 Total Creatine Kinase 279 U/L Triglycerides Level 97 mg/dl Cholesterol Level 146 mg/dl HDL Cholesterol 40 mg/dl LDL Cholesterol, Calculated 87 mg/dl VLDL Cholesterol, Calculated 19 mg/dl Cholesterol/HDL Ratio 3.7 Thyroid Stimulating Hormone (TSH) 1.340 uIu/ml Test 11/12/16 06:07 White Blood Count 7.83 K/uL Red Blood Count 5.19 M/uL Hemoglobin 15.3 g/dL Hematocrit 46.6 % Mean Corpuscular Volume 89.8 fL Mean Corpuscular Hemoglobin 29.5 pg Mean Corpuscular Hemoglobin Concent 32.8 g/dl RDW Standard Deviation 40.8 fL RDW Coefficient of Variation 12.5 % Platelet Count 223 K/uL Mean Platelet Volume 10.7 fL Estimated Average Glucose 100 mg/dl Hemoglobin A1c 5.1 % Total Creatine Kinase 250 U/L Creatine Kinase MB 2.1 ng/ml Creatine Kinase MB Ratio 0.8 Troponin I < 0.015 ng/ml Mental Examination During interview pt is: alert and oriented, cooperative Appearance: appropriately dressed (hospital gown), appropriately groomed Eye contact is: good Motor behavior is: no abnormal motor movements Speech: normal in rate, rhythm & volume Affect: mood congruent, euthymic, anxious (mildly) Mood is: other ("stressed") Thought process: goal directed, linear, logical, clear, coherent Thought content: reality based without delusions Suicidal thought are: denied Homicidal thoughts are: denied Hallucinations: denies auditory, denies visual Cognition: memory grossly intact, attention grossly intact, language grossly intact Intelligence estimated to be: average Insight: fair Judgement: fair Impression / Recommendations Impression 31-year-old single white male with no psychiatric history who was admitted for cardiac workup after an episode of chest pain in the context of an argument with his girlfriend. He describes relationship strain that has worsened over the past couple of weeks, with his girlfriend moving out and taking their 2-year -old daughter. He states that he has no idea what the status of their relationship is, and that this is causing his anxiety. He is willing to follow- up with an outpatient therapist, and would benefit from supportive psychotherapy , and possibly couples therapy if his girlfriend is willing. Recommendations (1) Adjustment disorder with anxious mood Recommend referral for outpatient psychotherapy. Please contact case management to refer him and schedule an appointment prior to discharge, as the psychiatric liaison is not available at this time, and the patient states he is scheduled for discharge today. No indication for psychotropic medications at this time, but we discussed that if symptoms of depression or anxiety worsen, medication may be appropriate, and he should follow up with his PCP or a psychiatrist.
--- NOTE | 2016-11-12 14:37 | Discharge Summary ---
Discharge Summary Date of Service Nov 12, 2016. Discharge Summary Admission Date: Nov 11, 2016 at 21:27 Discharge Date: Nov 12, 2016 Discharge Disposition: Home Principal Diagnosis: Atypical Chest pain, Adjustment disorder with anxious mood Procedures: Stress ECHO: * The study was technically adequate. * STRESS STUDY: Normal exercise stress echocardiogram. No echocardiographic or ECG evidence of myocardial ischemia having achieved heart rate adequate for diagnostic purposes. Resting ECHO: Ejection Fraction = 60-65%. * There is mild concentric left ventricular hypertrophy. * The left ventricular wall motion is normal. * Pulse wave TDI of the anterior and posterior mitral annulas demonstrates normal LV relaxation. * No significant valvular disease. Consultations: Cardiology, Psychiatry Pending Studies/Follow-Up: Follow up with on 11/18/16 at 11:00am at [facility] office Follow up with your psychiatrist for outpatient psychotherapy as advised Seek immediate medical attention if your symptoms reoccur or worsen Continue low salt diet, exercise daily and monitor your blood pressure regularly as advised Medication Reconciliation Medication Profile: No Active Prescriptions or Reported Meds Admission Information HPI (per Admitting provider): 31 year old male who presents to the ED with chest pain. Patient reports his symptoms began around 0430pm today. He reports a midsternal chest pain that radiated mildly over to the right side of chest. He describes the pain as a pressure. He reports associated palpitations, nausea, lightheadedness, and shortness of breath. Symptoms lasted for around 10 minutes and started to subside. Of note, patient is currently going through a separation with his long time girlfriend. They also have a child together. Just before his episode of chest pain today, patient reports having an argument with his girlfriend. 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 He does not follow with a physician regularly. He reports having a poor appetite while going through the separation. He denies abdominal pain, nausea, vomiting, or diarrhea. No fever or chills. He denies urinary symptoms. In the ED, patient is found to have an elevated BP at 156/101. EKG shows T-wave inversions inferiorly and laterally. Initial POC troponin is negative. D. Dimer is negative. Topical nitro paste was applied. Physical Exam (per Admitting): General Appearance: no apparent distress Head: normocephalic, atraumatic Eyes: normal inspection, sclerae normal ENT: hearing grossly normal Neck: supple, no JVD Respiratory/Chest: chest non-tender, lungs clear, normal breath sounds, no respiratory distress Cardiovascular: regular rate, rhythm, no edema, normal peripheral pulses Abdomen/GI: normal bowel sounds, non tender, soft Extremities/Musculoskelatal: normal inspection, no calf tenderness Neurologic/Psych: no motor/sensory deficits, alert, normal mood/affect, oriented x 3 Skin: normal color, warm/dry Hospital Course Atypical Chest Pain: patient presented with chest pain, palpitations, nausea, and shortness of breath - noted symptoms started after having an argument with his girlfriend Likely secondary to anxiety issues EKG: ST changes Cardiac enzymes negative D. Dimer ECHO: no wall motion abnormality Stress test: negative HYPERTENSION Likely situational Encourage low salt diet, regular exercise monitor Adjustment disorder with anxious mood: received Ativan PRN Appreciate Psychiatry Input No indication for meds for now Planned for outpatient Psychotherapy DVT Px SCDs Disposition: Plan to discharge home today Follow up with on 11/18/16 at 11:00am at [facility] office Follow up with your psychiatrist for outpatient psychotherapy as advised Seek immediate medical attention if your symptoms reoccur or worsen PROCEDURES: Stress ECHO: * The study was technically adequate. * STRESS STUDY: Normal exercise stress echocardiogram. No echocardiographic or ECG evidence of myocardial ischemia having achieved heart rate adequate for diagnostic purposes. Resting ECHO: Ejection Fraction = 60-65%. * There is mild concentric left ventricular hypertrophy. * The left ventricular wall motion is normal. * Pulse wave TDI of the anterior and posterior mitral annulas demonstrates normal LV relaxation. * No significant valvular disease. Total time spent on discharge = This includes examination of the patient, discharge planning, medication reconciliation, and communication with other providers. Discharge Instructions Discharge Instructions Date of Service Nov 12, 2016. Admission Reason for Admission: Chest Pain Discharge Discharge Diagnosis / Problem: Atypical Chest pain, Adjustment disorder with anxious mood Discharge Goals Goal(s): Decrease discomfort, Improve function Activity Recommendations Activity Limitations: resume your previous activity Exercise/Sports Limitations: as tolerated . Instructions / Follow-Up Instructions / Follow-Up Follow up with on 11/18/16 at 11:00am at [facility] office Follow up with your psychiatrist for outpatient psychotherapy as advised Seek immediate medical attention if your symptoms reoccur or worsen Continue low salt diet, exercise daily and monitor your blood pressure regularly as advised Current Hospital Diet Patient's current hospital diet: AHA Diet (Heart Healthy) Discharge Diet Recommended Diet: AHA Diet (Heart Healthy) Pending Studies Studies pending at discharge: no Laboratory Results Hemoglobin A1c Test 11/12/16 06:07 Range/Units Estimated Average Glucose 100 mg/dl Hemoglobin A1c 5.1 4.5-5.6 % Lipid Panel Test 11/12/16 01:48 Range/Units Triglycerides Level 97 0-150 mg/dl Cholesterol Level 146 0-200 mg/dl HDL Cholesterol 40 mg/dl Cholesterol/HDL Ratio 3.7 LDL Cholesterol, Calculated 87 mg/dl Medical Emergencies . Who to Call and When: Medical Emergencies: If at any time you feel your situation is an emergency, please call 911 immediately. . Non-Emergent Contact Non-Emergency issues call your: Primary Care Provider, Specialist (Psychiatrist ) Call Non-Emergent contact if: you have a fever, your pain is not controlled, your pain is worsening, your pain is unusual for you, your pain is concerning you, you have any medication questions Seek immediate medical attention if your symptoms reoccur or worsen . . "Provider Documentation" section prepared by Sean Cruz. . VTE Core Measure Inpt VTE Proph given/why not?: SCD's <Electronically signed by Sean Cruz MD> Signed: 11/12/16 143 Signed: The status of this report is Signed * If report status is Draft, the document has not been finalized by the responsible provider.
[2016-11-12 14:39] VITALS: BP 119/78; PULSE 80; TEMP 37.1; O2SAT 95
== END 2016-11-12 14:52 | disposition home or self-care (01) ==
LOC: C.EDB 17:44 → C.MED 21:27 → ENRESERV 21:47
PROVIDERS: ADMIT Hospitalist; ATTEND Internal Medicine
DX: R07.89 Other chest pain (principal); F43.22 Adjustment disorder with anxiety; I10 Essential (primary) hypertension; Z80.8 Family history of malignant neoplasm of other organs or systems